=== PATIENT | female | born 2000 | race Caucasian/White ===

== ENCOUNTER 2022-03-08 14:45 | Observation (INO) | payer OTHER ==
[2022-03-08] MEDS ORDERED: Fentanyl 100 MCG/2 ML VIAL ONE (14:57)
[2022-03-08 16:25] LABS: BHCG - Serum Negative (NEGATIVE); Pregs Control Background? CLEAR/WHITE (CLR/WHITE); Pregs Control Bar Appear? YES (CONTROL BAR)
[2022-03-08] MEDS ORDERED: Dextrose 5% in Water 1,000 ML IV PRN (17:27)
[2022-03-08] MEDS ORDERED: TETANUS, DIPHTHERIA TOX,ADULT (TDVAX) 0.5 ML VIAL IM ONE (17:27)
[2022-03-08] MEDS ORDERED: Ondansetron ODT 4 MG TAB PO PRN (17:27)
[2022-03-08] MEDS ORDERED: Dextrose 50% Abboject 50 ML SYRINGE SLOW IVP PRN (17:27)
[2022-03-08] MEDS ORDERED: Ketamine 50 MG/ML (10ML VIAL) ONE (17:27)
[2022-03-08] MEDS ORDERED: Ondansetron PF 4 MG/2 ML Vial IVP PRN (17:27)
[2022-03-08] MEDS ORDERED: traMADol HCl 50 MG TAB PO PRN (17:31)
[2022-03-08] MEDS ORDERED: Lorazepam 2 MG/ML VIAL ONE (17:37)
[2022-03-08] MEDS ORDERED: Ondansetron PF 4 MG/2 ML Vial ONE (17:38)
[2022-03-08] MEDS ORDERED: Morphine 4 MG/ML VIAL SLOW IVP PRN (17:46)
[2022-03-08] MEDS ORDERED: Acetaminophen 325 MG TAB PO SCH (18:00)
[2022-03-08 18:25] LABS: #Basophils 0.1 thou/uL (0.0-0.2); #Eosinphils 0.2 thou/uL (0.0-0.7); #Lymphocytes 2.8 thou/uL (1.20-3.40); #Monocytes 0.6 thou/uL (0.11-0.59); #Neutrophils 6.4 thou/uL (1.40-6.50); %Basophils 0.6 % (0.0-1.0); %Eosinophils 1.8 % (0.0-10.0); %Neutrophils 63.6 % (42.0-75.0); Hemoglobin 14.1 g/dL (12.0-16.0); Mean Corpuscular HGB CONC 33.8 g/dL (32.0-36.0); Mean Corpuscular Hemoglobin 29.4 pg (27.0-31.0); Mean Corpuscular Volume 87.1 fL (78.0-98.0); Mean Platelet Volume 8.2 fL (7.4-10.4); Platelet Count 321 thou/uL (130-400); RBC Distribution Width 11.7 % (11.5-14.5); Red Blood Cell (RBC) Count 4.78 mill/uL (4.20-5.40)
[2022-03-08 18:43] LABS: Anion Gap 12 mmol/L (10-20); BUN (Urea Nitrogen) 12 mg/dL (7.0-18.7); Calc. Creatinine Clearance 0 mL/min (70-130); Calcium 9.8 mg/dL (7.8-10.44); Carbon Dioxide 25 mmol/L (22-29); Chloride 106 mmol/L (98-107); Estimated GFR 106; Glucose 88 mg/dL (70-105); Potassium 4.7 mmol/L (3.5-5.1); Sodium 138 mmol/L (136-145)
[2022-03-08] MEDS ORDERED: CEFAZOLIN 2 GM in Sodium Chloride 0.9% 100 ML IVPB SCH (19:15)
[2022-03-08] MEDS: Famotidine 20 MG TAB PO SCH (21:20)
[2022-03-08] MEDS: traMADol HCl 50 MG TAB PO SCH ×2 (21:20→23:35)
[2022-03-08] MEDS: Gabapentin 300 MG CAP PO SCH (21:20)
[2022-03-08] MEDS: Ibuprofen 600 MG TAB PO SCH ×2 (21:20→23:35)
[2022-03-08] MEDS: Acetaminophen 500 MG TAB PO SCH (23:35)
[2022-03-08] MEDS ORDERED: Sodium Chloride 0.9% 1,000 ML IV SCH (23:59)
[2022-03-09 02:10] LABS: SARS-CoV-2 NAA Rapid Test Not Detected (NotDetected)
[2022-03-09] MEDS: traMADol HCl 50 MG TAB PO SCH ×2 (06:05→12:58)
[2022-03-09] MEDS: Acetaminophen 500 MG TAB PO SCH ×3 (06:05→18:19)
[2022-03-09] MEDS: Ibuprofen 200 MG TAB PO SCH ×2 (06:05→12:57)
[2022-03-09] MEDS ORDERED: fentaNYL Citrate/PF 100 MCG/2 ML SYRINGE ONE ×2 (08:57→08:58)
[2022-03-09] MEDS ORDERED: FLU VACC QS2022-23(6MOS UP)/PF 60 MCG/0.5 ML SYRINGE IM ONE (09:00)
[2022-03-09] MEDS ORDERED: Polyethylene Glycol 3350 17 GM Packet PO SCH (09:00)
[2022-03-09] MEDS: Gabapentin 300 MG CAP PO SCH ×2 (09:00→12:57)
[2022-03-09] MEDS ORDERED: Senokot S 8.6-50 MG TAB PO SCH (09:00)
[2022-03-09] MEDS ORDERED: Bupivacaine PF 0.5% 30 ML VIAL ONE (09:01)
[2022-03-09] MEDS ORDERED: Fentanyl 100 MCG/2 ML VIAL ONE (09:01)
[2022-03-09] MEDS ORDERED: Ropivacaine 0.5% HCl/PF (150 MG/30 ML VIAL) ONE (09:01)
[2022-03-09] MEDS ORDERED: Neomycin-Polymyxin 1 ML AMP ONE (09:01)
[2022-03-09] MEDS ORDERED: Midazolam HCl 2 mg/2 ml Vial ONE (09:01)
[2022-03-09] MEDS ORDERED: CEFAZOLIN 2 GM VIAL ONE (09:19)
[2022-03-09] MEDS ORDERED: Sodium Chloride 0.9% 100 ML ONE (09:19)
[2022-03-09] MEDS ORDERED: PROPOFOL 200 MG/20 ML VIAL ONE (09:30)
[2022-03-09] MEDS ORDERED: Ketorolac Tromethamine 30 MG/ML VIAL ONE (09:30)
[2022-03-09] MEDS ORDERED: Ondansetron PF 4 MG/2 ML Vial ONE (09:30)
[2022-03-09] MEDS ORDERED: Dexamethasone 20 MG/5 ML VIAL ONE (09:30)
[2022-03-09] MEDS ORDERED: Famotidine/PF 20 mg/2ml Vial ONE (09:38)
[2022-03-09] MEDS ORDERED: Promethazine HCl 25 MG/ML VIAL IVPB PRN (11:17)
[2022-03-09] MEDS ORDERED: Promethazine HCl 25 MG/ML VIAL IM PRN (11:17)
[2022-03-09] MEDS ORDERED: Ondansetron HCl/PF 4 MG/2 ML Vial IVP PRN (11:17)
[2022-03-09] MEDS: Famotidine 20 MG TAB PO SCH (12:42)
[2022-03-09] MEDS ORDERED: Boostrix 0.5 ML (Tdap) VIAL (>/=7 yrs of age) IM ONE (14:00)
[2022-03-10] MEDS ORDERED: Enoxaparin Sodium 40 MG/0.4 ML SYRINGE SC SCH (09:00)
[2022-03-12 10:54] VITALS: BP 114/73; TEMP 98.1
[2022-03-12 10:55] VITALS: BMI 34.2
== END 2022-03-09 18:30 | disposition home or self-care (01) ==
LOC: ERS 14:45 → SJJU 17:27
PROVIDERS: ADMIT Specialist; ATTEND Specialist
PROC: 0QSK04Z Reposition Left Fibula with Internal Fixation Device, Open Approach (ICD-10-PCS; principal; 2022-03-09)
PROC: 0QSH04Z Reposition Left Tibia with Internal Fixation Device, Open Approach (ICD-10-PCS; 2022-03-09)
DX: S82.852A Displaced trimalleolar fracture of left lower leg, initial encounter for closed fracture (principal); G89.11 Acute pain due to trauma; Z79.899 Other long term (current) drug therapy; Z20.822 Contact with and (suspected) exposure to COVID-19; X50.1XXA Overexertion from prolonged static or awkward postures, initial encounter
CPT/HCPCS: 27840; 36415; 80048; 84703; 85025; 90714; 93005; 96372; 96374; 96375; 99152; C1713; G0378; G0390; J0690; J1100; J1650; J1885; J2060; J2250; J2270; J2405; J2704; J2795; J3010; J3490; J7050; S0020; S0028; U0002; U0003; U0005

== ENCOUNTER 2023-05-06 11:15 | Day surgery (SDC) | payer OTHER ==
[2023-05-03 09:45] VITALS: BMI 34.8
[2023-05-06] MEDS ORDERED: EPINEPHrine 1 MG/ML VIAL ONE (11:46)
[2023-05-06] MEDS ORDERED: Bupivacaine PF 0.5% 30 ML VIAL ONE (11:46)
[2023-05-06] MEDS ORDERED: CEFAZOLIN 2 GM VIAL ONE (12:17)
[2023-05-06] MEDS ORDERED: Sodium Chloride 0.9% 100 ML ONE (12:17)
[2023-05-06] MEDS ORDERED: PROPOFOL 40 ML ONE (13:09)
[2023-05-06] MEDS ORDERED: Dexmedetomidine 200 MCG/2 ML VIAL ONE (13:09)
[2023-05-06] MEDS ORDERED: fentaNYL PF 100 MCG/2 ML SYRINGE ONE (13:09)
[2023-05-06] MEDS ORDERED: Ondansetron PF 4 MG/2 ML Vial ONE ×2 (13:15→13:25)
[2023-05-06] MEDS ORDERED: Lidocaine 1% PF 5 ML VIAL ONE (13:15)
[2023-05-06] MEDS ORDERED: Dexamethasone 20 MG/5 ML VIAL ONE ×2 (13:15→13:25)
[2023-05-06] MEDS ORDERED: PROPOFOL 200 MG/20 ML VIAL ONE (13:15)
[2023-05-06] MEDS ORDERED: Ketorolac Tromethamine 30 MG/ML VIAL ONE (13:40)
[2023-05-06] MEDS ORDERED: fentaNYL 50 mcg/mL 1 mL Vial ONE (14:49)
[2023-05-06] MEDS ORDERED: HYDROcodone/Acetaminophen 5/325 mg Tablet ONE (15:24)
== END 2023-05-06 16:15 | disposition home or self-care (01) ==
LOC: SDC 11:15
PROVIDERS: ATTEND Orthopaedic Surgery
PROC: 0QP Lower Bones, Removal (ICD-10-PCS; principal; 2023-05-06)
DX: T85.848A Pain due to other internal prosthetic devices, implants and grafts, initial encounter (principal); Y83.1 Surgical operation with implant of artificial internal device as the cause of abnormal reaction of the patient, or of later complication, without mention of misadventure at the time of the procedure
CPT/HCPCS: J0171; J1100; J1885; J2405; J2704; J3010; J3490; S0020